=== PATIENT | female | born 1980 | race Caucasian/White ===

== ENCOUNTER 2017-06-05 15:48 | Emergency (ER) | payer OTHER ==
[~2017-06-05] VITALS: Ht 144.8 cm; Wt 52.6 kg
[2017-06-05 15:58] VITALS: BP 127/83
[2017-06-05 19:39] VITALS: BP 124/71
== END 2017-06-05 19:39 | disposition home or self-care (01) ==
LOC: MED 15:48
DX: N64.4 Mastodynia (principal)
CPT/HCPCS: 76641; 99284

== ENCOUNTER 2021-04-13 18:02 | Emergency (ER) | payer OTHER ==
[~2021-04-13] VITALS: Ht 142.2 cm; Wt 55.3 kg
[2021-04-13 18:11] VITALS: BP 165/83
--- NOTE | 2021-04-13 18:14 | NUR ---
PATIENT GIVEN URINE CUP AND AMBULATED TO LOBBY
--- NOTE | 2021-04-13 19:12 | NUR ---
REPORT GIVEN TO JOEY ARENAS. ALL CARE TRANSFERED.
--- NOTE | 2021-04-13 19:15 | NUR ---
PATIENT PRESENTS TO ED WITH c/o right flank . PT is mohawk speaking. DENIES N/V/D; SKIN IS PINK/WARM/DRY; AAOX4 WITH EVEN AND STEADY GAIT; LUNGS CLEAR BL; HR EVEN AND REGULAR; PT DENIES ANY FEVER, CP, SOB, OR COUGH AT THIS TIME; PATIENT STATES PAIN OF 6/10 AT THIS TIME; VSS; PATIENT POSITIONED FOR COMFORT; HOB ELEVATED; BEDRAILS UP X2; BED DOWN. ER MD at bedside.
[2021-04-13] MEDS ORDERED: MORPHINE SULFATE 4 MG/ML SYR IM ONE (19:20)
[2021-04-13] MEDS ORDERED: ACET-8386 PO (19:36)
[2021-04-13] MEDS ORDERED: IBUP-2213 PO (19:36)
[2021-04-13 20:12] VITALS: BP 148/72
--- NOTE | 2021-04-13 20:12 | NUR ---
Patient discharged with v/s stable. Written and verbal after care instructions given and explained. Patient alert, oriented and verbalized understanding of instructions. Ambulatory with steady gait. All questions addressed prior to discharge. ID band removed. Patient advised to follow up with PMD. Rx of HYDROCODONE, IBUPROFEN given. Patient educated on indication of medication including possible reaction and side effects. Opportunity to ask questions provided and answered.
== END 2021-04-13 20:12 | disposition home or self-care (01) ==
LOC: MED 18:02
DX: M54.5 Low back pain (principal)
CPT/HCPCS: 81002; 81025; 96372; 99283; J2270

== ENCOUNTER 2023-07-14 12:35 | Emergency (ER) | payer OTHER ==
[~2023-07-14] VITALS: Ht 134.6 cm; Wt 50.8 kg
[~2023-07-14 12:35] MED LIST: ACET-8905 PO; IBUP-2213 PO
[2023-07-14 13:18] VITALS: BP 139/69; PULSE 72; RESP 20; TEMP 98.5; O2SAT 99
[2023-07-14 13:50] VITALS: O2SAT 99
[2023-07-14] MEDS ORDERED: ATA25 PO (15:03)
[2023-07-14 15:19] VITALS: BP 132/69; PULSE 72; RESP 20; TEMP 98; O2SAT 99
== END 2023-07-14 15:19 | disposition home or self-care (01) ==
LOC: MED 12:35
DX: R42 Dizziness and giddiness (principal); F41.9 Anxiety disorder, unspecified; I10 Essential (primary) hypertension; Z79.899 Other long term (current) drug therapy; Z98.890 Other specified postprocedural states; Z88.6 Allergy status to analgesic agent
CPT/HCPCS: 81002; 81025; 99283

== ENCOUNTER 2023-08-18 19:08 | Emergency (ER) | payer OTHER ==
[~2023-08-18] VITALS: Ht 152.4 cm; Wt 50.5 kg
[~2023-08-18 19:08] MED LIST changes: +ATA25 PO
[2023-08-18 19:20] VITALS: BP 172/82; PULSE 67; RESP 17; TEMP 97.6; O2SAT 99
[2023-08-18 20:58] LABS: ANION GAP 14.7 (8-16); CALCIUM 8.9 mg/dL (8.5-10.1); CARBON DIOXIDE 27.4 mmol/L (21-32); CREATININE 0.6 mg/dL (0.6-1.3); POTASSIUM 3.1 mmol/L (3.5-5.1)
[2023-08-18] MEDS ORDERED: POTASSIUM CHLORIDE 10 MEQ TABER PO ONE ×2 (21:30→22:05)
[2023-08-18] MEDS ORDERED: LISI-486 PO (21:40)
[2023-08-18 22:15] VITALS: BP 150/85; PULSE 75; RESP 16; O2SAT 95
== END 2023-08-18 22:15 | disposition home or self-care (01) ==
LOC: MED 19:08
DX: I10 Essential (primary) hypertension (principal); E87.6 Hypokalemia; F41.9 Anxiety disorder, unspecified; Z79.899 Other long term (current) drug therapy; Z79.1 Long term (current) use of non-steroidal anti-inflammatories (NSAID); Z88.6 Allergy status to analgesic agent
CPT/HCPCS: 36415; 80048; 99283